=== PATIENT | female | born 1940 | race African-American/Black ===

== ENCOUNTER 2018-04-19 14:41 | Inpatient (IN) ==
[2018-04-19 16:04] LABS: Basophils % 0.2 % (0.0-0.8); Hematocrit 38.5 VOL% (35.7-47.0); Hemoglobin 12.8 GM/DL (12.0-16.0); Immature Granulocytes % 0.4 %; Immature Granulocytes Absolute 0.04 #; Lymphocytes # 2.1 10*3/uL (1.4-4.0); Lymphocytes % 19.6 % (21.3-54.2); Mean Corpuscular HGB Conc 33.2 GM/DL (32-36); Mean Corpuscular Hemoglobin 27 PG (27-34); Mean Corpuscular Volume 81.7 FL (87-102); Mean Platelet Volume 9.9 FL (9.6-12.0); Monocytes # 0.8 10*3/uL (0.11-0.8); Monocytes % 7.8 % (1.7-12.7); Neutrophils # 7.5 10*3/uL (1.4-7.4); Platelet Count 437 T/CUMM (130-400); Red Blood Count 4.71 MC/CUMM (3.8-5.5); Red Cell Distribution Width 15.8 % (9.3-17.3); White Blood Count 10.5 T/CUMM (4-12)
[2018-04-19 16:25] LABS: Albumin 2.9 G/DL (3.4-5.0); Bilirubin,Total 0.8 MG/DL (0.2-1.0); Total Protein 8.1 G/DL (6.4-8.3)
[2018-04-19] MEDS ORDERED: ASPIRIN 325 MG TABLET PO STA (16:31)
[2018-04-19] MEDS ORDERED: POTASSIUM CHLORIDE 20 MEQ TABLET PO STA (16:33)
[2018-04-19 17:21] LABS: Basophils % 0.2 % (0.0-0.8); Hematocrit 35.4 VOL% (35.7-47.0); Hemoglobin 12.4 GM/DL (12.0-16.0); Immature Granulocytes % 0.3 %; Immature Granulocytes Absolute 0.03 #; Lymphocytes # 2.1 10*3/uL (1.4-4.0); Lymphocytes % 19.8 % (21.3-54.2); Mean Corpuscular Hemoglobin 28 PG (27-34); Mean Corpuscular Volume 79.4 FL (87-102); Mean Platelet Volume 10.5 FL (9.6-12.0); Monocytes # 0.9 10*3/uL (0.11-0.8); Monocytes % 8.4 % (1.7-12.7); Neutrophils # 7.4 10*3/uL (1.4-7.4); Neutrophils % 71.3 % (38.7-73.9); Platelet Count 387 T/CUMM (130-400); Red Blood Count 4.46 MC/CUMM (3.8-5.5); Red Cell Distribution Width 15.9 % (9.3-17.3); White Blood Count 10.4 T/CUMM (4-12)
[2018-04-19 17:32] LABS: PT Patient Result 62.2 SECS
[2018-04-19 17:36] LABS: INR 6.3
[2018-04-19 20:51] LABS: Apearance,Urine CLEAR (Clear); Bilirubin,Urine Negative (Negative); Blood, Urine Negative (Negative); Glucose,Urine (UA) Negative (Negative); Ketones,Urine Negative (Negative); Nitrite,Urine Negative (Negative); Protein,Urine Negative; RBC,Urine 1 /HPF (0-4); Squamous Epithelial Cell,Urine Occasional /HPF (0-10); Urine Color Yellow (Yellow); Urine Urobilinogen < 2.0 EU/DL (0.2-1.0); WBC,Urine <1 /HPF (0-6)
[2018-04-19] MEDS ORDERED: ONDANSETRON 4 MG/2 ML VIAL IV PRN (21:07)
[2018-04-19] MEDS ORDERED: MORPHINE 4 MG/1 ML VIAL IV PRN (21:07)
[2018-04-19] MEDS ORDERED: SODIUM CHLORIDE 0.9% 1,000 ML IV SCH (21:30)
[2018-04-19] MEDS ORDERED: traMADol 50 MG TABLET PO PRN (21:51)
[2018-04-20 06:19] LABS: INR 4.7
[2018-04-20 06:21] LABS: PT Patient Result 46.9 SECS
[2018-04-20] MEDS: amLODIPine 10 MG TABLET PO SCH (09:08)
[2018-04-20] MEDS: SACUBITRIL/VALSARTAN 49-51 MG TABLET PO SCH (09:08)
[2018-04-20] MEDS: PANTOPRAZOLE 40 MG TABLET PO SCH (09:09)
[2018-04-20] MEDS: BUMETANIDE 1 MG TABLET PO SCH (09:09)
[2018-04-20] MEDS: POTASSIUM CHLORIDE 20 MEQ TABLET PO SCH (09:09)
[2018-04-20] MEDS: DOCUSATE SODIUM 100 MG CAPSULE PO SCH ×2 (09:11→20:11)
[2018-04-20] MEDS ORDERED: POTASSIUM CHLORIDE 20 MEQ TABLET PO PRN (09:46)
[2018-04-20] MEDS ORDERED: POTASSIUM CHLORIDE RIDER 10 MEQ in PREMIX 1 EACH IV PRN (09:46)
[2018-04-20 09:54] LABS: Basophils % 0.3 % (0.0-0.8); Eosinophils % 0.4 % (0.00-10.9); Hematocrit 34.2 VOL% (35.7-47.0); Hemoglobin 11.8 GM/DL (12.0-16.0); Immature Granulocytes % 0.3 %; Immature Granulocytes Absolute 0.02 #; Lymphocytes # 2.5 10*3/uL (1.4-4.0); Lymphocytes % 32.9 % (21.3-54.2); Mean Corpuscular HGB Conc 34.5 GM/DL (32-36); Mean Corpuscular Hemoglobin 28 PG (27-34); Monocytes # 0.7 10*3/uL (0.11-0.8); Monocytes % 9.4 % (1.7-12.7); Neutrophils # 4.3 10*3/uL (1.4-7.4); Neutrophils % 56.7 % (38.7-73.9); Platelet Count 364 T/CUMM (130-400); Red Blood Count 4.22 MC/CUMM (3.8-5.5); Red Cell Distribution Width 16.1 % (9.3-17.3); White Blood Count 7.6 T/CUMM (4-12)
[2018-04-20 10:19] LABS: Calcium 8.3 MG/DL (8.5-10.1); Osmolality,Calculated 276.5 MOS/KG (273-304); Potassium 3.9 MMOL/L (3.5-5.1)
[2018-04-21 06:01] LABS: INR 4.1
[2018-04-21 06:13] LABS: PT Patient Result 40.9 SECS
[2018-04-21 07:57] VITALS: BP 107/63
[2018-04-21] MEDS: amLODIPine 10 MG TABLET PO SCH (08:19)
[2018-04-21] MEDS: SACUBITRIL/VALSARTAN 49-51 MG TABLET PO SCH (08:19)
[2018-04-21] MEDS: DOCUSATE SODIUM 100 MG CAPSULE PO SCH (08:20)
[2018-04-21] MEDS: BUMETANIDE 1 MG TABLET PO SCH (08:20)
[2018-04-21] MEDS: POTASSIUM CHLORIDE 20 MEQ TABLET PO SCH (08:20)
[2018-04-21] MEDS: PANTOPRAZOLE 40 MG TABLET PO SCH (08:20)
[2018-04-21] MEDS ORDERED: ALUMINUM/MAGNES/SIMETH MAX STR 30 ML UDCUP PO PRN (11:02)
== END 2018-04-21 11:25 | disposition home or self-care (01) | DRG 949 ==
LOC: N.ED 14:41 → N.EDINP 19:37 → N.4E 20:19
PROVIDERS: ADMIT Internal Medicine Infectious Disease; ATTEND Internal Medicine Infectious Disease